=== PATIENT | female | born 1970 | race Caucasian/White ===

== ENCOUNTER 2018-05-09 15:22 | Observation (INO) | payer BC ==
[2018-05-09] MEDS ORDERED: Sodium Chloride 0.9% 2.5 ML Syringe FLUSH PRN (15:43)
[2018-05-09] MEDS ORDERED: Sodium Chloride 0.9% 10 ML Syringe FLUSH PRN (15:43)
[2018-05-09] MEDS ORDERED: hydrALAZINE 20 MG/ML SDV IVPUSH ONE (15:45)
--- NOTE | 2018-05-09 15:52 | EDM.PDOC ---
ED HPI GENERAL MEDICAL PROBLEM - General Chief Complaint: Cardiovascular Problem Stated Complaint: BLOOD PRESSURE HIGH Time Seen by Provider: 05/09/18 15:37 - History of Present Illness INITIAL COMMENTS - FREE TEXT/NARRATIVE: HISTORY AND PHYSICAL: History of present illness: Patient's 48-year-old white female with no significant past medical history was seen for routine [employer] check recently and was noted to have elevated blood pressure she has a scheduled appointment for follow-up on Monday she comes today for persistently elevated blood pressure on arrival is a systolic in the 210-220 range patient has had no shortness of breath no neurological signs or symptoms she states she does feel she's had cold symptoms with some chest congestion a T-shirt describes as a tightness. Review of systems: As per history of present illness and below otherwise all systems reviewed and negative. Past medical history: As per history of present illness and as reviewed below otherwise noncontributory. Surgical history: As per history of present illness and as reviewed below otherwise noncontributory. Social history: No reported history of drug or alcohol abuse. Family history: As per history of present illness and as reviewed below otherwise noncontributory. Physical exam: HEENT: Atraumatic, normocephalic, pupils reactive, negative for conjunctival pallor or scleral icterus, mucous membranes moist, throat clear, neck supple, nontender, trachea midline. Lungs: Clear to auscultation, breath sounds equal bilaterally, chest nontender. Heart: S1S2, regular, negative for clicks, rubs, or JVD. Abdomen: Soft, nondistended, nontender. Negative for masses or hepatosplenomegaly. Negative for costovertebral tenderness. Pelvis: Stable nontender. Genitourinary: Deferred. Rectal: Deferred. Extremities: Atraumatic, negative for cords or calf pain. Neurovascular unremarkable. Neuro: Awake, alert, oriented. Cranial nerves II through XII unremarkable. Cerebellum unremarkable. Motor and sensory unremarkable throughout. Exam nonfocal. Diagnostics: CBC CMP troponin EKG chest x-ray Therapeutics: Saline lock media monitor hydralazine 10 mg IV Impression: #1 hypertension #2 atypical chest pain Definitive disposition and diagnosis as appropriate pending reevaluation and review of above. - Related Data Allergies Allergy/AdvReac Type Severity Reaction Status Date / Time codeine Allergy Other Verified 05/09/18 15:37 diphenhydramine Allergy Other Verified 05/09/18 15:37 [From Benadryl] Home Meds: Home Meds Citalopram Hydrobromide [Celexa] 10 mg PO DAILY 05/09/18 [History] Ergocalciferol (Vitamin D2) [Vitamin D2] 1 tab DAILY 05/09/18 [History] Past Medical History - Past Health History Medical/Surgical History: Denies Medical/Surgical History Cardiovascular History: Reports: Hypertension - Past Surgical History Female Surgical History: Reports: Hysterectomy, Salpingo-Oophorectomy Musculoskeletal Surgical History: Reports: Arthroscopic Knee Social & Family History - Family History Family Medical History: Noncontributory - Tobacco Use Smoking Status *Q: Never Smoker - Recreational Drug Use Recreational Drug Use: No ED ROS GENERAL - Review of Systems Review Of Systems: ROS reveals no pertinent complaints other than HPI. ED EXAM, GENERAL - Physical Exam Exam: See Below (See dictation) Course - Vital Signs Last Recorded V/S: Last Vital Signs Temp 35.8 C 05/09/18 15:33 Pulse 69 05/09/18 16:30 Resp 18 05/09/18 16:30 BP 209/118 H 05/09/18 16:30 Pulse Ox 98 05/09/18 16:30 - Orders/Labs/Meds Orders: Active Orders 24 hr Category Date Time Status Cardiac Monitoring [RC] . DIRECTED Care 05/09/18 15:43 Active EKG Documentation Completion [RC] STAT Care 05/09/18 15:43 Active Oxygen Therapy [RC] ASDIRECTED Care 05/09/18 15:43 Active Sodium Chloride 0.9% [Saline Flush] Med 05/09/18 15:43 Active 10 ml FLUSH ASDIRECTED PRN Sodium Chloride 0.9% [Saline Flush] Med 05/09/18 15:43 Active 2.5 ml FLUSH ASDIRECTED PRN Saline Lock Insert [OM.PC] Stat Oth 05/09/18 15:43 Ordered Medication Orders Sodium Chloride (Saline Flush) 10 ml FLUSH ASDIRECTED PRN PRN Reason: Keep Vein Open Last Admin: 05/09/18 16:29 Dose: 10 ml Sodium Chloride (Saline Flush) 2.5 ml FLUSH ASDIRECTED PRN PRN Reason: Keep Vein Open Last Admin: 05/09/18 16:29 Dose: 2.5 ml Labs: Laboratory Tests 05/09/18 05/09/18 05/09/18 Range/Units 15:50 15:50 15:50 WBC 8.10 (4.0-11.0) K/uL RBC 5.05 (4.30-5.90) M/uL Hgb 16.2 H (12.0-16.0) g/dL Hct 46.7 H (36.0-46.0) % MCV 92.5 (80.0-98.0) fL MCH 32.1 H (27.0-32.0) pg MCHC 34.7 (31.0-37.0) g/dL RDW Std Deviation 43.1 (28.0-62.0) fl RDW Coeff of Jesusita 13 (11.0-15.0) % Plt Count 207 (150-400) K/uL MPV 10.70 (7.40-12.00) fL Neut % (Auto) 52.1 (48.0-80.0) % Lymph % (Auto) 40.1 H (16.0-40.0) % Antelope % (Auto) 6.7 (0.0-15.0) % Eos % (Auto) 0.7 (0.0-7.0) % Baso % (Auto) 0.4 (0.0-1.5) % Neut # (Auto) 4.2 (1.4-5.7) K/uL Lymph # (Auto) 3.3 H (0.6-2.4) K/uL Antelope # (Auto) 0.5 (0.0-0.8) K/uL Eos # (Auto) 0.1 (0.0-0.7) K/uL Baso # (Auto) 0.0 (0.0-0.1) K/uL Nucleated RBC % 0.0 /100WBC Nucleated RBCs # 0 K/uL INR 1.09 Sodium 139 (136-145) mmol/L Potassium 3.7 (3.5-5.1) mmol/L Chloride 102 (98-107) mmol/L Carbon Dioxide 25.5 (21.0-32.0) mmol/L BUN 10 (7.0-18.0) mg/dL Creatinine 0.8 (0.6-1.0) mg/dL Est Cr Clr Drug Dosing 78.23 mL/min Estimated GFR (MDRD) > 60.0 ml/min Glucose 96 (74-106) mg/dL Calcium 10.0 (8.5-10.1) mg/dL Total Bilirubin 0.6 (0.2-1.0) mg/dL AST 43 H (15-37) IU/L ALT 45 (14-63) IU/L Alkaline Phosphatase 76 (46-116) U/L Troponin I < 0.050 (0.000-0.056) ng/mL Total Protein 8.1 (6.4-8.2) g/dL Albumin 4.1 (3.4-5.0) g/dL Globulin 4.0 (2.6-4.0) g/dL Albumin/Globulin Ratio 1.0 (0.9-1.6) Meds: Medications Generic Name Dose Route Start Last Admin Trade Name Frepatric PRN Reason Stop Dose Admin Sodium Chloride 10 ml 05/09/18 15:43 05/09/18 16:29 Saline Flush FLUSH 10 ml ASDIRECTED PRN Administration Keep Vein Open Sodium Chloride 2.5 ml 05/09/18 15:43 05/09/18 16:29 Saline Flush FLUSH 2.5 ml ASDIRECTED PRN Administration Keep Vein Open Discontinued Medications Generic Name Dose Route Start Last Admin Trade Name Freq PRN Reason Stop Dose Admin Aspirin Confirm 05/09/18 16:26 05/09/18 16:34 Aspirin Administered 05/09/18 16:27 Not Given Dose 324 mg .ROUTE .STK-MED ONE Aspirin 324 mg 05/09/18 16:30 05/09/18 16:32 Aspirin PO 05/09/18 16:31 324 mg ONETIME ONE Administration Hydralazine HCl 10 mg 05/09/18 15:45 05/09/18 16:29 Apresoline IVPUSH 05/09/18 15:46 10 mg ONETIME ONE Administration Nitroglycerin Confirm 05/09/18 16:26 05/09/18 16:33 Nitro-Bid 2% Administered 05/09/18 16:27 Not Given Dose 1 gm .ROUTE .STK-MED ONE Nitroglycerin 1 gm 05/09/18 16:31 05/09/18 16:32 Nitro-Bid 2% TOP 05/09/18 16:32 1 gm ONETIME ONE Administration Departure - Departure Time of Disposition: 17:02 Disposition: Refer to Observation Condition: Good Clinical Impression: Hypertension, Atypical chest pain Referrals: PCP,None [Primary Care Provider] - Forms: ED Department Discharge - My Orders Last 24 Hours: My Active Orders 05/09/18 15:43 Cardiac Monitoring [RC] . DIRECTED EKG Documentation Completion [RC] STAT Oxygen Therapy [RC] ASDIRECTED Sodium Chloride 0.9% [Saline Flush] 10 ml FLUSH ASDIRECTED PRN Sodium Chloride 0.9% [Saline Flush] 2.5 ml FLUSH ASDIRECTED PRN Saline Lock Insert [OM.PC] Stat - Assessment/Plan Last 24 Hours: My Active Orders 05/09/18 15:43 Cardiac Monitoring [RC] . DIRECTED EKG Documentation Completion [RC] STAT Oxygen Therapy [RC] ASDIRECTED Sodium Chloride 0.9% [Saline Flush] 10 ml FLUSH ASDIRECTED PRN Sodium Chloride 0.9% [Saline Flush] 2.5 ml FLUSH ASDIRECTED PRN Saline Lock Insert [OM.PC] Stat
--- NOTE | 2018-05-09 16:21 | CR ---
EXAMINATION: Portable chest radiograph. HISTORY: High blood pressure. FINDINGS: The trachea is midline. The cardiomediastinal silhouette is within normal limits. No pulmonary infiltrates, effusions or pneumothorax. Osseous structures appear unremarkable. IMPRESSION: No acute cardiopulmonary process.
[2018-05-09] MEDS ORDERED: Nitroglycerin 2% Oint 1 GM UD Packet ONE (16:26)
[2018-05-09] MEDS ORDERED: Aspirin 81 MG Tab.Chew ONE (16:26)
[2018-05-09] MEDS ORDERED: Aspirin 81 MG Tab.Chew PO ONE (16:30)
[2018-05-09] MEDS ORDERED: Nitroglycerin 2% Oint 1 GM UD Packet TOP ONE (16:31)
[2018-05-09 16:48] LABS: CHLORIDE,CL 102 mmol/L (98-107); SODIUM,NA 139 mmol/L (136-145)
[2018-05-09] MEDS ORDERED: Diphtheria,Pertussis(Acell),Tetanus Vaccine 0.5 ML Syringe IM ONE (17:46)
[2018-05-09] MEDS ORDERED: Ondansetron 4 MG/2 ML SDV IVPUSH PRN (17:49)
--- NOTE | 2018-05-09 18:08 | PCM.HP ---
H&P History of Present Illness - General Date of Service: 05/09/18 Admit Problem/Dx: Admission Diagnosis/Problem Admission Diagnosis/Problem Hypertension Source of Information: Patient History Limitations: Reports: No Limitations - History of Present Illness Initial Comments - Free Text/Narative: 48F with no significant past hx to her knowledge presented to the ER with a chief complaint of elevated blood pressure. She tells me that she visited her OB this past 05/03/18 for a routine physical where she was noted to have a blood pressure >200 systolic and was advised to seek a primary care provider. She tells me that she kept an eye on her blood pressure over the weekend and into the week which remained elevated, so she came to the ER. She also states that she has been experiencing a cold for the past few days and feels congested, which she describes as "chest tightness". She denies chest pain , radiation, numbness or tingling, shortness of breath. She denies headaches, blurry vision. - Related Data Allergies/Adverse Reactions: Allergies Allergy/AdvReac Type Severity Reaction Status Date / Time codeine Allergy Other Verified 05/09/18 15:37 diphenhydramine Allergy Other Verified 05/09/18 15:37 [From Benadryl] Home Medications: Home Meds Citalopram Hydrobromide [Celexa] 10 mg PO DAILY 05/09/18 [History] Ergocalciferol (Vitamin D2) [Vitamin D2] 1 tab DAILY 05/09/18 [History] Past Medical History - Past Health History Medical/Surgical History: Denies Medical/Surgical History Cardiovascular History: Reports: Hypertension Other Cardiovascular History: HTN since last 05/03/18 - Past Surgical History Cardiovascular Surgical History: Reports: None Female Surgical History: Reports: Hysterectomy, Salpingo-Oophorectomy Musculoskeletal Surgical History: Reports: Arthroscopic Knee Social & Family History - Family History Family Medical History: Noncontributory - Tobacco Use Smoking Status *Q: Never Smoker Second Hand Smoke Exposure: Yes - Caffeine Use Caffeine Use: Reports: Coffee - Recreational Drug Use Recreational Drug Use: No H&P Review of Systems - Review of Systems: Review Of Systems: ROS reveals no pertinent complaints other than HPI. Exam - Exam Exam: See Below - Vital Signs Vital Signs: Last Vital Signs Temp 35.8 C 05/09/18 15:33 Pulse 86 05/09/18 17:30 Resp 15 05/09/18 17:30 BP 199/91 H 05/09/18 17:30 Pulse Ox 96 05/09/18 17:30 Weight: 93.758 kg - Exam General: Alert, Oriented, 4 HEENT: PERRLA, Hearing Intact, Mucosa Moist & Security-[place], Nares Patent, Normal Nasal Septum, Posterior Pharynx Clear, Conjunctiva Clear, EOMI, EACs Clear, TMs Clear Neck: Supple, Trachea Midline, 2 Lungs: Clear to Auscultation, Normal Respiratory Effort Cardiovascular: Regular Rate, Regular Rhythm GI/Abdominal Exam: Normal Bowel Sounds, Soft, Non-Tender, No Organomegaly, No Distention, No Abnormal Bruit, No Mass, Pelvis Stable Back Exam: Normal Inspection, Full Range of Motion, NT Extremities: Normal Inspection, Normal Range of Motion, Non-Tender, No Pedal Edema, Normal Capillary Refill Peripheral Pulses: 2+: Dorsalis Pedis (L), Dorsalis Pedis (R) Skin: Warm, Dry, Intact Neurological: Cranial Nerves Intact, Reflexes Equal Bilateral Neuro Extensive - Mental Status: Alert, Oriented x3, Normal Mood/Affect, Normal Cognition Neuro Extensive - Motor, Sensory, Reflexes: CN II-XII Intact, Normal Gait, Normal Reflexes Psychiatric: Alert, Normal Affect, Normal Mood - Patient Data Lab Results Last 24 hrs: Laboratory Results - last 24 hr 05/09/18 05/09/18 05/09/18 Range/Units 15:50 15:50 15:50 WBC 8.10 (4.0-11.0) K/uL RBC 5.05 (4.30-5.90) M/uL Hgb 16.2 H (12.0-16.0) g/dL Hct 46.7 H (36.0-46.0) % MCV 92.5 (80.0-98.0) fL MCH 32.1 H (27.0-32.0) pg MCHC 34.7 (31.0-37.0) g/dL RDW Std Deviation 43.1 (28.0-62.0) fl RDW Coeff of Jesusita 13 (11.0-15.0) % Plt Count 207 (150-400) K/uL MPV 10.70 (7.40-12.00) fL Neut % (Auto) 52.1 (48.0-80.0) % Lymph % (Auto) 40.1 H (16.0-40.0) % Lares % (Auto) 6.7 (0.0-15.0) % Eos % (Auto) 0.7 (0.0-7.0) % Baso % (Auto) 0.4 (0.0-1.5) % Neut # (Auto) 4.2 (1.4-5.7) K/uL Lymph # (Auto) 3.3 H (0.6-2.4) K/uL Lares # (Auto) 0.5 (0.0-0.8) K/uL Eos # (Auto) 0.1 (0.0-0.7) K/uL Baso # (Auto) 0.0 (0.0-0.1) K/uL Nucleated RBC % 0.0 /100WBC Nucleated RBCs # 0 K/uL INR 1.09 Sodium 139 (136-145) mmol/L Potassium 3.7 (3.5-5.1) mmol/L Chloride 102 (98-107) mmol/L Carbon Dioxide 25.5 (21.0-32.0) mmol/L BUN 10 (7.0-18.0) mg/dL Creatinine 0.8 (0.6-1.0) mg/dL Est Cr Clr Drug Dosing 78.23 mL/min Estimated GFR (MDRD) > 60.0 ml/min Glucose 96 (74-106) mg/dL Calcium 10.0 (8.5-10.1) mg/dL Total Bilirubin 0.6 (0.2-1.0) mg/dL AST 43 H (15-37) IU/L ALT 45 (14-63) IU/L Alkaline Phosphatase 76 (46-116) U/L Troponin I < 0.050 (0.000-0.056) ng/mL Total Protein 8.1 (6.4-8.2) g/dL Albumin 4.1 (3.4-5.0) g/dL Globulin 4.0 (2.6-4.0) g/dL Albumin/Globulin Ratio 1.0 (0.9-1.6) Result Diagrams: 05/09/18 15:50 05/09/18 15:50 [place] Results Last 24 hrs: Microbiology 05/09/18 17:05 Influenza Type A Antigen Screen - Final Nasopharyngeal Swab NEGATIVE INFLUENZA A VIRUS AG Influenza Type B Antigen Screen - Final NEGATIVE INFLUENZA B VIRUS AG Problem List Initiated/Reviewed/Updated: Yes Orders Last 24hrs: Active Orders 24 hr Category Date Time Status Patient Status [ADT] Stat ADT 05/09/18 17:04 Active Cardiac Monitoring [RC] . DIRECTED Care 05/09/18 15:43 Active Cardiac Monitoring [RC] CONTINUOUS Care 05/09/18 17:49 Ordered Influenza Vaccine Charge [RC] .DISCHARGE Care 05/09/18 17:46 Active Oxygen Therapy [RC] PRN Care 05/09/18 17:49 Ordered Up ad Alina [RC] ASDIRECTED Care 05/09/18 17:49 Ordered VTE/DVT Education [RC] PER UNIT ROUTINE Care 05/09/18 17:49 Ordered Vaccines to be Administered [RC] PER UNIT ROUTINE Care 05/09/18 17:47 Active Vital Signs [RC] Q4H Care 05/09/18 17:49 Ordered 2 Gram Sodium Diet [DIET] Diet 05/09/18 Dinner Ordered BASIC METABOLIC PANEL,BMP [CHEM] AM Lab 05/10/18 05:11 Ordered TROPONIN I [CHEM] Q6H Lab 05/09/18 21:50 Ordered TROPONIN I [CHEM] Q6H Lab 05/10/18 03:50 Ordered UA W/O MICROSCOPIC [URIN] Routine Lab 05/09/18 17:49 Ordered Acetaminophen [Tylenol] Med 05/09/18 17:49 Ordered 650 mg PO Q4H PRN Citalopram Hydrobromide Med 05/10/18 09:00 Ordered 10 mg PO DAILY Lisinopril [Prinivil] Med 05/09/18 18:00 Ordered 10 mg PO DAILY Ondansetron [Zofran] Med 05/09/18 17:49 Ordered 4 mg IVPUSH Q4H PRN Sodium Chloride 0.9% [Saline Flush] Med 05/09/18 15:43 Active 10 ml FLUSH ASDIRECTED PRN Sodium Chloride 0.9% [Saline Flush] Med 05/09/18 15:43 Active 2.5 ml FLUSH ASDIRECTED PRN Saline Lock Insert [OM.PC] Stat Oth 05/09/18 15:43 Ordered Sequential Compression Device [OM.PC] Per Unit Routine Oth 05/09/18 17:49 Ordered Resuscitation Status Routine Resus Stat 05/09/18 17:49 Ordered Medication Orders Acetaminophen (Tylenol) 650 mg PO Q4H PRN PRN Reason: Pain (Mild 1-3)/fever Citalopram Hydrobromide (Celexa) 10 mg PO DAILY THERESA Lisinopril (Prinivil) 10 mg PO DAILY THERESA Ondansetron HCl (Zofran) 4 mg IVPUSH Q4H PRN PRN Reason: Nausea Sodium Chloride (Saline Flush) 10 ml FLUSH ASDIRECTED PRN PRN Reason: Keep Vein Open Last Admin: 05/09/18 16:29 Dose: 10 ml Sodium Chloride (Saline Flush) 2.5 ml FLUSH ASDIRECTED PRN PRN Reason: Keep Vein Open Last Admin: 05/09/18 16:29 Dose: 2.5 ml Assessment/Plan Comment:: Assessment: #1. Atypical chest pain in the setting of HTN #2. HTN #3. URI Plan: #1. Admit for observation. Vitals per floor, cardiac tele. low salt diet. scd for dvt prophylaxis #2. 10mg Lisinopril daily, given now and continue to monitor her BP with goals of slow drop in blood pressure over days. She has a fluctuating blood pressure with the last reading being 199 systolic. She states she has an appointment with a PCP on Monday #3. Troponin q6h x2 - first one negative. EKG unremarkable #4. UA #5. Anticipate dc tomorrow.
[2018-05-09] MEDS: Lisinopril 10 MG Tab PO SCH (19:26)
[2018-05-09] MEDS ORDERED: Metoprolol Tartrate 5 MG/5 ML SDV IVPUSH PRN (19:45)
[2018-05-09] MEDS: Acetaminophen 325 MG Tab PO PRN (20:19)
[2018-05-10] MEDS: Acetaminophen 325 MG Tab PO PRN ×3 (04:11→08:50)
[2018-05-10 04:13] LABS: CHLORIDE,CL 104 mmol/L (98-107); SODIUM,NA 139 mmol/L (136-145)
[2018-05-10] MEDS ORDERED: Diphtheria,Pertussis(Acell),Tetanus Vaccine 0.5 ML Syringe IM ONE (08:00)
[2018-05-10] MEDS: Lisinopril 10 MG Tab PO SCH (08:38)
[2018-05-10] MEDS ORDERED: Citalopram 20 MG Tab PO SCH (09:00)
--- NOTE | 2018-05-10 09:07 | PCM.DCSUM1 ---
Discharge Summary - Hospital Course Free Text/Narrative:: Admission date: 05/09/18 Discharge date: 05/10/18 Admission diagnosis: #1. Atypical chest pain in the setting of HTN #2. HTN #3. URI Discharge diagnosis: #1. Atypical chest pain in the setting of HTN - resolved #2. HTN - stable #3. URI - improved #4. Hx of depression Hospital course: 48F that was admitted to our hospital w/ concerns of elevated blood pressure (>200 systolic) in the setting of questionable chest pain. Patient was seen by her OB a week prior to presentation for annual exam noted incidentally to have significantly elevated BP - she was to f/u with PCP but appointment was made for 05/14. She says she got a cold, and was experiencing chest tightness and was concerned about persistently elevated BP, so she came to the ER. Patient was admitted, ruled out for ACS - and was started on lisinopril. BP decreased significantly. She is to go home on 10mg PO lisinopril daily - and to f/u with her PCP. She does have a hx of tension headaches for which she takes ibuprofen - she was advised against this. She was told she can talk to her PCP more about headaches and control. Headaches may have been occurring secondary to HTN. She understands and agrees to the plan. - Discharge Data Discharge Date: 05/10/18 Discharge Disposition: Home, Self-Care 01 Condition: Stable - Patient Instructions Diet: Low Sodium Activity: As Tolerated Driving: May Drive Today Showering/Bathing: May Shower Wound/Incision Care: Keep Operative Site/Wound Site Clean and Dry Notify Provider of: Fever, Increased Pain - Discharge Plan Prescriptions/Med Rec: Lisinopril [Prinivil] 10 mg PO DAILY 14 Days #14 tablet Home Medications: Home Meds Citalopram Hydrobromide [Celexa] 10 mg PO DAILY 05/09/18 [History] Ergocalciferol (Vitamin D2) [Vitamin D2] 1 tab DAILY 05/09/18 [History] Lisinopril [Prinivil] 10 mg PO DAILY 14 Days #14 tablet 05/10/18 [Rx] Forms: ED Department Discharge Referrals: PCP,None [Primary Care Provider] - - Discharge Summary/Plan Comment DC Time >30 min.: No - Patient Data Vitals - Most Recent: Last Vital Signs Temp 36.2 C 05/10/18 08:00 Pulse 62 05/10/18 08:00 Resp 16 05/10/18 08:00 BP 138/79 05/10/18 08:38 Pulse Ox 96 05/10/18 08:00 Weight - Most Recent: 93.758 kg I&O - Last 24 hours: Intake & Output 05/09/18 05/10/18 05/10/18 22:59 06:59 14:59 Intake Total 850 Output Total 300 Balance 550 Lab Results - Last 24 hrs: Laboratory Results - last 24 hr 05/09/18 05/09/18 05/09/18 Range/Units 15:50 15:50 15:50 WBC 8.10 (4.0-11.0) K/uL RBC 5.05 (4.30-5.90) M/uL Hgb 16.2 H (12.0-16.0) g/dL Hct 46.7 H (36.0-46.0) % MCV 92.5 (80.0-98.0) fL MCH 32.1 H (27.0-32.0) pg MCHC 34.7 (31.0-37.0) g/dL RDW Std Deviation 43.1 (28.0-62.0) fl RDW Coeff of Jesusita 13 (11.0-15.0) % Plt Count 207 (150-400) K/uL MPV 10.70 (7.40-12.00) fL Neut % (Auto) 52.1 (48.0-80.0) % Lymph % (Auto) 40.1 H (16.0-40.0) % Stanley % (Auto) 6.7 (0.0-15.0) % Eos % (Auto) 0.7 (0.0-7.0) % Baso % (Auto) 0.4 (0.0-1.5) % Neut # (Auto) 4.2 (1.4-5.7) K/uL Lymph # (Auto) 3.3 H (0.6-2.4) K/uL Stanley # (Auto) 0.5 (0.0-0.8) K/uL Eos # (Auto) 0.1 (0.0-0.7) K/uL Baso # (Auto) 0.0 (0.0-0.1) K/uL Nucleated RBC % 0.0 /100WBC Nucleated RBCs # 0 K/uL INR 1.09 Sodium 139 (136-145) mmol/L Potassium 3.7 (3.5-5.1) mmol/L Chloride 102 (98-107) mmol/L Carbon Dioxide 25.5 (21.0-32.0) mmol/L BUN 10 (7.0-18.0) mg/dL Creatinine 0.8 (0.6-1.0) mg/dL Est Cr Clr Drug Dosing 78.23 mL/min Estimated GFR (MDRD) > 60.0 ml/min Glucose 96 (74-106) mg/dL Calcium 10.0 (8.5-10.1) mg/dL Total Bilirubin 0.6 (0.2-1.0) mg/dL AST 43 H (15-37) IU/L ALT 45 (14-63) IU/L Alkaline Phosphatase 76 (46-116) U/L Troponin I < 0.050 (0.000-0.056) ng/mL Total Protein 8.1 (6.4-8.2) g/dL Albumin 4.1 (3.4-5.0) g/dL Globulin 4.0 (2.6-4.0) g/dL Albumin/Globulin Ratio 1.0 (0.9-1.6) Urine Color Urine Appearance Urine pH (5.0-8.0) Ur Specific [place] (1.001-1.035) Urine Protein (NEGATIVE) mg/dL Urine Glucose (UA) (NEGATIVE) mg/dL Urine Ketones (NEGATIVE) mg/dL Urine Occult Blood (NEGATIVE) Urine Nitrite (NEGATIVE) Urine Bilirubin (NEGATIVE) Urine Urobilinogen (<2.0) EU/dL Ur Leukocyte Esterase (NEGATIVE) 05/09/18 05/09/18 05/10/18 Range/Units 18:45 21:54 04:00 WBC (4.0-11.0) K/uL RBC (4.30-5.90) M/uL Hgb (12.0-16.0) g/dL Hct (36.0-46.0) % MCV (80.0-98.0) fL MCH (27.0-32.0) pg MCHC (31.0-37.0) g/dL RDW Std Deviation (28.0-62.0) fl RDW Coeff of Jesusita (11.0-15.0) % Plt Count (150-400) K/uL MPV (7.40-12.00) fL Neut % (Auto) (48.0-80.0) % Lymph % (Auto) (16.0-40.0) % Stanley % (Auto) (0.0-15.0) % Eos % (Auto) (0.0-7.0) % Baso % (Auto) (0.0-1.5) % Neut # (Auto) (1.4-5.7) K/uL Lymph # (Auto) (0.6-2.4) K/uL Stanley # (Auto) (0.0-0.8) K/uL Eos # (Auto) (0.0-0.7) K/uL Baso # (Auto) (0.0-0.1) K/uL Nucleated RBC % /100WBC Nucleated RBCs # K/uL INR Sodium 139 (136-145) mmol/L Potassium 4.0 (3.5-5.1) mmol/L Chloride 104 (98-107) mmol/L Carbon Dioxide 28.0 (21.0-32.0) mmol/L BUN 12 (7.0-18.0) mg/dL Creatinine 0.8 (0.6-1.0) mg/dL Est Cr Clr Drug Dosing 78.23 mL/min Estimated GFR (MDRD) > 60.0 ml/min Glucose 104 (74-106) mg/dL Calcium 9.6 (8.5-10.1) mg/dL Total Bilirubin (0.2-1.0) mg/dL AST (15-37) IU/L ALT (14-63) IU/L Alkaline Phosphatase (46-116) U/L Troponin I < 0.050 (0.000-0.056) ng/mL Total Protein (6.4-8.2) g/dL Albumin (3.4-5.0) g/dL Globulin (2.6-4.0) g/dL Albumin/Globulin Ratio (0.9-1.6) Urine Color YELLOW Urine Appearance CLEAR Urine pH 6.0 (5.0-8.0) Ur Specific [place] 1.020 (1.001-1.035) Urine Protein NEGATIVE (NEGATIVE) mg/dL Urine Glucose (UA) NEGATIVE (NEGATIVE) mg/dL Urine Ketones TRACE H (NEGATIVE) mg/dL Urine Occult Blood NEGATIVE (NEGATIVE) Urine Nitrite NEGATIVE (NEGATIVE) Urine Bilirubin NEGATIVE (NEGATIVE) Urine Urobilinogen 0.2 (<2.0) EU/dL Ur Leukocyte Esterase SMALL H (NEGATIVE) 05/10/18 Range/Units 04:00 WBC (4.0-11.0) K/uL RBC (4.30-5.90) M/uL Hgb (12.0-16.0) g/dL Hct (36.0-46.0) % MCV (80.0-98.0) fL MCH (27.0-32.0) pg MCHC (31.0-37.0) g/dL RDW Std Deviation (28.0-62.0) fl RDW Coeff of Jesusita (11.0-15.0) % Plt Count (150-400) K/uL MPV (7.40-12.00) fL Neut % (Auto) (48.0-80.0) % Lymph % (Auto) (16.0-40.0) % Stanley % (Auto) (0.0-15.0) % Eos % (Auto) (0.0-7.0) % Baso % (Auto) (0.0-1.5) % Neut # (Auto) (1.4-5.7) K/uL Lymph # (Auto) (0.6-2.4) K/uL Stanley # (Auto) (0.0-0.8) K/uL Eos # (Auto) (0.0-0.7) K/uL Baso # (Auto) (0.0-0.1) K/uL Nucleated RBC % /100WBC Nucleated RBCs # K/uL INR Sodium (136-145) mmol/L Potassium (3.5-5.1) mmol/L Chloride (98-107) mmol/L Carbon Dioxide (21.0-32.0) mmol/L BUN (7.0-18.0) mg/dL Creatinine (0.6-1.0) mg/dL Est Cr Clr Drug Dosing mL/min Estimated GFR (MDRD) ml/min Glucose (74-106) mg/dL Calcium (8.5-10.1) mg/dL Total Bilirubin (0.2-1.0) mg/dL AST (15-37) IU/L ALT (14-63) IU/L Alkaline Phosphatase (46-116) U/L Troponin I < 0.050 (0.000-0.056) ng/mL Total Protein (6.4-8.2) g/dL Albumin (3.4-5.0) g/dL Globulin (2.6-4.0) g/dL Albumin/Globulin Ratio (0.9-1.6) Urine Color Urine Appearance Urine pH (5.0-8.0) Ur Specific [place] (1.001-1.035) Urine Protein (NEGATIVE) mg/dL Urine Glucose (UA) (NEGATIVE) mg/dL Urine Ketones (NEGATIVE) mg/dL Urine Occult Blood (NEGATIVE) Urine Nitrite (NEGATIVE) Urine Bilirubin (NEGATIVE) Urine Urobilinogen (<2.0) EU/dL Ur Leukocyte Esterase (NEGATIVE) TERRANCE Results - Last 24 hrs: Microbiology 05/09/18 17:05 Influenza Type A Antigen Screen - Final Nasopharyngeal Swab NEGATIVE INFLUENZA A VIRUS AG Influenza Type B Antigen Screen - Final NEGATIVE INFLUENZA B VIRUS AG Med Orders - Current: Current Medications Acetaminophen (Tylenol) 650 mg PO Q4H PRN PRN Reason: Pain (Mild 1-3)/fever Last Admin: 05/10/18 08:50 Dose: 650 mg Citalopram Hydrobromide (Celexa) 10 mg PO DAILY [facility] Last Admin: 05/10/18 08:39 Dose: 10 mg Lisinopril (Prinivil) 10 mg PO DAILY [facility] Last Admin: 05/10/18 08:38 Dose: 10 mg Metoprolol Tartrate (Lopressor) 5 mg IVPUSH Q3H PRN PRN Reason: Hypertension Ondansetron HCl (Zofran) 4 mg IVPUSH Q4H PRN PRN Reason: Nausea Sodium Chloride (Saline Flush) 10 ml FLUSH ASDIRECTED PRN PRN Reason: Keep Vein Open Last Admin: 05/09/18 16:29 Dose: 10 ml Sodium Chloride (Saline Flush) 2.5 ml FLUSH ASDIRECTED PRN PRN Reason: Keep Vein Open Last Admin: 05/09/18 16:29 Dose: 2.5 ml Discontinued Medications Aspirin (Aspirin) Confirm Administered Dose 324 mg .ROUTE .STK-MED ONE Stop: 05/09/18 16:27 Last Admin: 05/09/18 16:34 Dose: Not Given Aspirin (Aspirin) 324 mg PO ONETIME ONE Stop: 05/09/18 16:31 Last Admin: 05/09/18 16:32 Dose: 324 mg Diphtheria/Tetanus/Acell Pertussis (Adacel) 0.5 ml IM .ONCE ONE Stop: 05/09/18 17:47 Last Admin: 05/10/18 08:37 Dose: Not Given Diphtheria/Tetanus/Acell Pertussis (Adacel) 0.5 ml IM .ONCE ONE Stop: 05/10/18 08:01 Last Admin: 05/10/18 08:38 Dose: Not Given Hydralazine HCl (Apresoline) 10 mg IVPUSH ONETIME ONE Stop: 05/09/18 15:46 Last Admin: 05/09/18 16:29 Dose: 10 mg Influenza Virus Vaccine (Pharmacy To Dose - Influenza Vaccine) 1 each IM ONETIME ONE Stop: 05/09/18 17:47 Last Admin: 05/10/18 08:38 Dose: Not Given Influenza Virus Vaccine (Fluzone Quad [id number] Syringe) 60 mcg IM .ONCE ONE Stop: 05/09/18 18:01 Last Admin: 05/10/18 08:38 Dose: Not Given Influenza Virus Vaccine (Fluzone Quad [id number] Syringe) 60 mcg IM .ONCE ONE Stop: 05/10/18 08:01 Last Admin: 05/10/18 08:38 Dose: Not Given Nitroglycerin (Nitro-Bid 2%) Confirm Administered Dose 1 gm .ROUTE .STK-MED ONE Stop: 05/09/18 16:27 Last Admin: 05/09/18 16:33 Dose: Not Given Nitroglycerin (Nitro-Bid 2%) 1 gm TOP ONETIME ONE Stop: 05/09/18 16:32 Last Admin: 05/09/18 16:32 Dose: 1 gm
== END 2018-05-10 10:58 | disposition home or self-care (01) ==
LOC: MW.ED 15:22 → MW.MS 17:23
PROVIDERS: ADMIT Internal Medicine; ATTEND Internal Medicine
DX: I10 Essential (primary) hypertension (principal); R07.89 Other chest pain; J06.9 Acute upper respiratory infection, unspecified; F32.9 Major depressive disorder, single episode, unspecified; Z88.5 Allergy status to narcotic agent; Z88.8 Allergy status to other drugs, medicaments and biological substances; Z79.899 Other long term (current) drug therapy
CPT/HCPCS: 36415; 71045; 80048; 80053; 81003; 84484; 85025; 85610; 87804; 93005; 96374; 99285; A9270; G0378; J0360

== ENCOUNTER 2022-05-20 09:07 | Day surgery (SDC) | payer BC ==
[~2022-05-20 09:07] MED LIST: Lactated Ringers 1,000 ML IV SCH
[2022-05-20] MEDS ORDERED: Propofol 200 MG/20 ML SDV ONE (09:53)
== END 2022-05-20 11:40 | disposition home or self-care (01) ==
LOC: MW.SDS 09:07
PROVIDERS: ATTEND Surgery
DX: Z12.11 Encounter for screening for malignant neoplasm of colon (principal); K57.30 Diverticulosis of large intestine without perforation or abscess without bleeding; I10 Essential (primary) hypertension; G47.33 Obstructive sleep apnea (adult) (pediatric); F41.9 Anxiety disorder, unspecified; F32.A Depression, unspecified; E66.9 Obesity, unspecified; Z68.32 Body mass index [BMI] 32.0-32.9, adult; Z88.8 Allergy status to other drugs, medicaments and biological substances; Z88.5 Allergy status to narcotic agent; Z79.899 Other long term (current) drug therapy; Z98.890 Other specified postprocedural states
CPT/HCPCS: 45378; J2704; J7120